=== PATIENT | female | born 1980 | race Two or more races ===

== ENCOUNTER → 2019-10-09 | Outpatient (CLI) | payer OTHER ==
--- NOTE | 2019-10-09 10:12 | RAD ---
US PELVIS W/TV History: Irregular and spotty menses, abnormal uterine bleeding Comparison: None. Findings: Multiple transabdominal sonographic images of pelvis are submitted. Uterus measured 9.2 x 6.5 x 6.3 cm. Ovaries are not seen. Transvaginal ultrasound: Multiple transvaginal sonographic images of the pelvis are submitted. Endometrium measured about 1.3 cm maximal thickness. There is a somewhat heterogeneous mass of the superior left uterus in the myometrium up to 2.2 x 2.1 x 2.4 cm in size. There is another small mass of the uterus closer to the lower uterine segment about 1 x 1.2 x 0.8 cm in size. Left ovary measured 2.8 x 2.6 x 2 cm with normal color flow and low resistance vascularity. There is nabothian cyst. Right ovary measured 4.6 x 3.2 x 2.3 cm with normal low resistance vascularity and color flow. There is a hypoechoic lesion with minimal internal echoes of the right ovary up to 2.1 x 1.8 x 1.8 cm. There is another small anechoic lesion of the right ovary 1.6 x 1.7 x 1.2 cm. No free fluid is demonstrated. Impression: 1. There are 2 uterine masses likely due to fibroids, largest superiorly on the left up to 2.4 cm. 2. There are 2 right ovarian cysts, largest up to 2.1 cm. There is no free fluid. 2. Endometrial thickness can be considered within normal limits in a patient this age, especially such as during secretory phase Electronically signed by: Rudy Venegas MD (10/09/2019 10:09 AM) [id number]
== END | disposition home or self-care (01) ==
LOC: US 07:52
PROVIDERS: ATTEND Obstetrics & Gynecology
DX: Z01.419 Encounter for gynecological examination (general) (routine) without abnormal findings (principal); N83.201 Unspecified ovarian cyst, right side; N88.8 Other specified noninflammatory disorders of cervix uteri; R19.09 Other intra-abdominal and pelvic swelling, mass and lump
CPT/HCPCS: 76830; 76856

== ENCOUNTER 2021-10-26 18:26 | Emergency (ER) | payer OTHER ==
[~2021-10-26] VITALS: Ht 175.3 cm; Wt 110.6 kg
[2021-10-26] MEDS ORDERED: ONDANSETRON PF 4 MG/2 ML VIAL. IVP ONE (19:00)
[2021-10-26] MEDS ORDERED: IV NORMAL SALINE 1,000ML 1,000 ML IV SCH (19:00)
[2021-10-26] MEDS ORDERED: IOHEXOL 300 MG/ML 75 ML VIAL. IV ONE (19:15)
[2021-10-26 19:22] LABS: BASO % 0 % (0-3); EOS % 1 % (0-3); HEMATOCRIT 37.7 % (36.0-47.0); LYMPH % 37 % (24-48); MEAN CORPUSCULAR HEMOGLOBIN 24 pg (25-35); MEAN CORPUSCULAR HGB CONC 32 g/dL (31-37); MEAN CORPUSCULAR VOLUME 74 fL (79-100); MONO # 0.7 x10^3/uL (0.0-1.1); MONO % 9 % (0-9); NEUT # 4.5 x10^3uL (1.8-7.7); NEUT % 54 % (31-73); PLATELET COUNT 284 x10^3/uL (140-400); RED BLOOD COUNT 5.07 x10^6/uL (3.50-5.40); RED CELL DISTRIBUTION WIDTH 16.6 % (11.5-14.5); WHITE BLOOD COUNT 8.3 x10^3/uL (4.0-11.0)
[2021-10-26 19:26] LABS: CALCIUM 9.2 mg/dL (8.5-10.1); CREATININE 0.9 mg/dL (0.6-1.0); GFR 69.7; POTASSIUM 3.8 mmol/L (3.5-5.1); U PREG PATIENT NEGATIVE (NEG)
[2021-10-26 19:32] LABS: BACTERIA,URINE 0 /HPF (0-FEW); CLARITY,URINE CLEAR; COLOR,URINE YELLOW; GLUCOSE,URINE NEG (NEG); NITRITE,URINE NEG (NEG); RBC,URINE 0 /HPF (0-2); SQUAMOUS EPITHELIAL CELL,UR MOD /LPF; UROBILINOGEN,URINE 0.2 mg/dL (0.2 mg/dL); WBC,URINE OCC /HPF (0-4)
[2021-10-26 19:33] LABS: ALBUMIN/GLOBULIN RATIO 1.2 (1.0-1.7); TOTAL BILIRUBIN 0.2 mg/dL (0.2-1.0); TOTAL PROTEIN 7.3 g/dL (6.4-8.2)
--- NOTE | 2021-10-26 20:17 | RAD ---
Exam Date: 10/26/2021 7:[address] ABDOMEN+PELVIS W Indication: Reason: abdominal pain, n/v / Spl. Instructions: / History: . TECHNIQUE: CT examination of the abdomen and pelvis was performed following the administration of no nionic intravenous contrast. One or more of the following dose reduction techniques were utilized: *Automated exposure control (AEC) *Adjustment of mA and/or kV according to patient size *Use of iterative reconstruction technique *CT scan done according to ALARA, or ALARA/IMAGE GENTLY FINDINGS: The visualized lung bases are clear. The liver, gallbladder, spleen, pancreas, adrenal glands and kidneys are normal. Urinary bladder is normal in appearance. There is no bowel obstruction or inflammation. The appendix is normal. No significant atherosclerotic calcifications are seen. No lymphadenopathy or ascites is seen. Osseous structures are intact. IMPRESSION: No evidence of acute intra-abdominal pathology. Electronically signed by: Cesar Seo MD (10/26/2021 8:14 PM) [facility]
[2021-10-26] MEDS ORDERED: PHENAZOPYRIDINE 200 MG TABLET. PO ONE (20:45)
[2021-10-26] MEDS ORDERED: PHEN-318 PO (20:46)
[2021-10-26] MEDS ORDERED: CEPH500C PO (20:46)
--- NOTE | 2021-10-26 20:47 | PHYS DOC ---
Past History Additional Past Medical Histor: back pain (FRANKIE JUSTICE APRN) Past Surgical History: No Surgical History (FRANKIE JUSTICE APRN) Alcohol Use: None (FRANKIE JUSTICE APRN) General Adult EDM: Chief Complaint: ABDOMINAL PAIN HPI: HPI: Patient is a 40-year-old female who presents to the emergency department today for suprapubic abdominal pain that started today. She describes it as a cramping pain and she rates it 7 out of 10. She reports nausea. She denies vomiting, diarrhea, fever, vaginal bleeding, blood in stools, urinary symptoms. She reports the last time she had this pain she was told that she had a ruptured ovarian cyst. Patient's vital signs stable. (FRANKIE JUSTICE APRN) Review of Systems: Review of Systems: Constitutional: See HPI GI: See HPI : See HPI (FRANKIE JUSTICE APRN) Current Medications: Current Meds: Current Medications Medications (Trade) Dose Ordered Sig/Amanda Start Time Stop Time Status Last Admin Dose Admin Fentanyl Citrate (Fentanyl 2ml Vial) 50 mcg 1X ONCE 10/26/21 20:30 10/26/21 20:31 DC 10/26/21 20:24 50 MCG Iohexol (Omnipaque 300 Mg/ml) 75 ml 1X ONCE 10/26/21 19:15 10/26/21 19:16 DC 10/26/21 19:54 75 ML Ondansetron HCl (Zofran) 4 mg 1X ONCE 10/26/21 19:00 10/26/21 19:06 DC 10/26/21 19:08 4 MG Phenazopyridine HCl (Pyridium) 200 mg 1X ONCE 10/26/21 20:45 10/26/21 20:46 UNV Sodium Chloride 1,000 ml @ 1,000 mls/hr Q1H 10/26/21 19:00 10/26/21 19:59 DC 10/26/21 19:07 1,000 MLS/HR (FRANKIE JUSTICE APRN) Allergies: Allergies: Allergies Coded Allergies Type Severity Reaction Last Updated Verified latex Allergy Unknown 10/26/21 Yes (FRANKIE JUSTICE APRN) Physical Exam: PE: Constitutional: Well developed, well nourished, no acute distress, non-toxic appearance. [] HENT: Normocephalic, atraumatic, bilateral external ears normal, oropharynx moist, no oral exudates, nose normal. [] Eyes: PERRL, EOMI, conjunctiva normal, no discharge. [] Neck: Normal range of motion, no tenderness, supple, no stridor. [] Cardiovascular:Heart rate regular rhythm, no murmur [] Lungs & Thorax: Bilateral breath sounds clear to auscultation [] Abdomen: Bowel sounds normal, soft, suprapubic tenderness with palpation, no rebound tenderness, negative Bourgeois sign, no masses, no pulsatile masses. [] Skin: Warm, dry, no erythema, no rash. [] Back: No tenderness, no CVA tenderness. [] Extremities: No tenderness, no cyanosis, no clubbing, ROM intact, no edema. [] Neurologic: Alert and oriented X 3, normal motor function, normal sensory function, no focal deficits noted. [] Psychologic: Affect normal, judgement normal, mood normal. [] (FRANKIE JUSTICE APRN) Current Patient Data: Labs: Laboratory Tests Test 10/26/21 19:00 White Blood Count 8.3 x10^3/uL (4.0-11.0) Red Blood Count 5.07 x10^6/uL (3.50-5.40) Hemoglobin 12.0 g/dL (12.0-15.5) Hematocrit 37.7 % (36.0-47.0) Mean Corpuscular Volume 74 fL (79-100) L Mean Corpuscular Hemoglobin 24 pg (25-35) L Mean Corpuscular Hemoglobin Concent 32 g/dL (31-37) Red Cell Distribution Width 16.6 % (11.5-14.5) H Platelet Count 284 x10^3/uL (140-400) Neutrophils (%) (Auto) 54 % (31-73) Lymphocytes (%) (Auto) 37 % (24-48) Monocytes (%) (Auto) 9 % (0-9) Eosinophils (%) (Auto) 1 % (0-3) Basophils (%) (Auto) 0 % (0-3) Neutrophils # (Auto) 4.5 x10^3uL (1.8-7.7) Lymphocytes # (Auto) 3.0 x10^3/uL (1.0-4.8) Monocytes # (Auto) 0.7 x10^3/uL (0.0-1.1) Eosinophils # (Auto) 0.0 x10^3/uL (0.0-0.7) Basophils # (Auto) 0.0 x10^3/uL (0.0-0.2) Urine Collection Type Unknown Urine Color Yellow Urine Clarity Clear Urine pH 7.0 Urine Specific [place] 1.020 Urine Protein Neg (NEG-TRACE) Urine Glucose (UA) Neg mg/dL (NEG) Urine Ketones (Stick) Neg mg/dL (NEG) Urine Blood Neg (NEG) Urine Nitrite Neg (NEG) Urine Bilirubin Neg (NEG) Urine Urobilinogen Dipstick 0.2 mg/dL (0.2 mg/dL) Urine Leukocyte Esterase Trace (NEG) Urine RBC 0 /HPF (0-2) Urine WBC Occ /HPF (0-4) Urine Squamous Epithelial Cells Mod /LPF Urine Bacteria 0 /HPF (0-FEW) Urine Test Negative (NEG) Sodium Level 138 mmol/L (136-145) Potassium Level 3.8 mmol/L (3.5-5.1) Chloride Level 100 mmol/L (98-107) Carbon Dioxide Level 27 mmol/L (21-32) Anion Gap 11 (6-14) Blood Urea Nitrogen 9 mg/dL (7-20) Creatinine 0.9 mg/dL (0.6-1.0) Estimated GFR (Cockcroft-Gault) 69.7 BUN/Creatinine Ratio 10 (6-20) Glucose Level 103 mg/dL (70-99) H Calcium Level 9.2 mg/dL (8.5-10.1) Total Bilirubin 0.2 mg/dL (0.2-1.0) Aspartate Amino Transferase (AST) 10 U/L (15-37) L Alanine Aminotransferase (ALT) 21 U/L (14-59) Alkaline Phosphatase 60 U/L (46-116) Total Protein 7.3 g/dL (6.4-8.2) Albumin 4.0 g/dL (3.4-5.0) Albumin/Globulin Ratio 1.2 (1.0-1.7) Lipase 76 U/L (73-393) Vital Signs: Vital Signs Date Time Temp Pulse Resp B/P (MAP) Pulse Ox O2 Delivery O2 Flow Rate FiO2 3/21/22 18:26 86 20 131/95 (107) 100 Room Air 10/26/21 18:26 98.4 (FRANKIE JUSTICE APRN) EKG: EKG: [] (FRANKIE JUSTICE APRN) Radiology/Procedures: Radiology/Procedures: [] (FRANKIE JUSTICE APRN) Heart Score: C/O Chest Pain: N/A Risk Factors: Risk Factors: DM, Current or recent (<one month) smoker, HTN, HLP, family history of CAD, obesity. Risk Scores: Score 0 - 3: 2.5% MACE over next 6 weeks - Discharge Home Score 4 - 6: 20.3% MACE over next 6 weeks - Admit for Clinical Observation Score 7 - 10: 72.7% MACE over next 6 weeks - Early Invasive Strategies (FRANKIE JUSTICE APRN) Course & Med Decision Making: Course & Med Decision Making Pertinent Labs and Imaging studies reviewed. (See chart for details) [] Patient presents to the emergency department for suprapubic abdominal pain with nausea that started today. Work-up in the ER consisted of blood work, uri nalysis and CT imaging of abdomen and pelvis. CBC, CMP and lipase were negative. Urinalysis was positive for leukocytes and white blood cells. Patient will be treated with an antibiotic for urinary tract infection. Negative CT abdomen and pelvis. Patient will also be discharged home with Pyridium. Advised to increase fluids and avoid bladder irritants. I discussed with patient all findings and diagnostic testing as well as the need to follow- up with PCP for further evaluation and treatment or return to the ER if any new or worsening symptoms. Strict return precautions were also discussed at length. Patient voiced understanding and agreement with the plan. Patient is hemodynamically stable at the time of disposition. (FRANKIE JUSTICE APRN) Dragon Disclaimer: Dragon Disclaimer: This electronic medical record was generated, in whole or in part, using a voice recognition dictation system. (FRANKIE JUSTICE APRN) Departure Departure: Impression: Primary Impression: Urinary tract infection Qualified Codes: N30.00 - Acute cystitis without hematuria Disposition: HOME / SELF CARE / HOMELESS Condition: GOOD Referrals: PADMA STATON (PCP) Patient Instructions: Urinary Tract Infection Additional Instructions: You were seen in the emergency department today for suprapubic pain. You were noted to have a urinary tract infection which will be treated with an antibiotic. Please start and finish the antibiotic completely. You are also being discharged home with medication to help with bladder spasms, this may turn your urine orange. Increase your fluids. Avoid bladder irritants like caffeine, sugary beverages or alcohol. Follow-up with your primary care provider tomorrow regarding your ER visit. Return to the emergency department if you develop worsening of your abdominal pain, intractable nausea or vomiting, high fevers refractory to treatment, vaginal bleeding, blood in your stools or vomit or any new or worsening concerns. Scripts Phenazopyridine Hcl (PHENAZOPYRIDINE HCL) 200 Mg Tablet 1 TAB PO TID for urinary discomfort for 2 Days, #6 TAB 0 Refills after food Prov: FRANKIE JUSTICE APRN 10/26/21 Cephalexin (KEFLEX) 500 Mg Capsule 1 CAP PO BID for uti for 7 Days, #14 CAP 0 Refills Prov: FRANKIE JUSTICE APRN 10/26/21 Attending Signature Attending Signature I have participated in the care of this patient and I have reviewed and agree with all pertinent clinical information above including history, exam, and recommendations. (SEJAL BABB MD) Dragon Disclaimer This chart was dictated in whole or in part using Voice Recognition software in a busy, high-work load, and often noisy Emergency Department environment. It may contain unintended and wholly unrecognized errors or omissions. (SEJAL BABB MD) FRANKIE JUSTICE APRN Oct 26, 2021 20:47 SEJAL BABB MD Oct 29, 2021 23:03
[2021-10-26] MEDS ORDERED: PHEN-444 PO (20:49)
[2021-10-26 21:25] VITALS: BP 126/88
== END 2021-10-26 21:31 | disposition home or self-care (01) ==
LOC: ER 18:26
DX: N30.00 Acute cystitis without hematuria (principal); Z91.040 Latex allergy status
CPT/HCPCS: 36415; 74177; 80053; 81001; 81025; 83690; 85025; 87086; 96361; 96374; 96375; 96376; 99285; J2405; J3010; J7030; Q9967